=== PATIENT | female | born 1935 | race Caucasian/White ===

== ENCOUNTER 2016-10-15 19:01 | Emergency (ER) | payer OTHER ==
[~2016-10-15] VITALS: Ht 157.5 cm; Wt 68.0 kg
[~2016-10-15 19:01] MED LIST: ASPI81 PO; CAPT50TA3 PO; FISH300C2 PO; GATIFLOXACIN RIGHT EYE; KETO1SOL3 RIGHT EYE; MEVA40TA6 PO; OMNI1SUS OP; OYST500T77 PO; POTA-243 PO
[2016-10-15 19:06] VITALS: BP 225/90; PULSE 60; RESP 16; TEMP 98; O2SAT 97
--- NOTE | 2016-10-15 19:29 | PD ---
HPI Chief Complaint: Fall Time Seen by Provider: 19:24 Travel History International Travel<30 days: No Contact w/Intl Traveler<30days: No Traveled to known affect area: No History of Present Illness HPI 81-year-old female presents to the emergency room for evaluation of right elbow skin tear and right sided-rib pain after trip and fall just prior to arrival. Patient tripped on a blanket that was on the floor and fell to her right landing mostly on her elbow. She sustained a skin tear which her daughter cleaned with hydrogen peroxide. She denies hitting her head or loss of consciousness. She is not on blood thinners. Patient reports pesa-rb-orfsryht pain in her right ribs and thoracic spine worse with deep breathing. She denies shortness of breath or difficulty breathing. She was able to get up and walk immediately afterwards without significant pain. She denies upper or lower extremity paresthesias, saddle anesthesia, or loss of bowel or bladder control. Unknown last tetanus. PFSH Past Medical History Arthritis: Yes Blood Disorders: No Cancer: No Cardiovascular Problems: Yes High Cholesterol: Yes Chemotherapy: No Endocrine: No Genitourinary: No Hypertension: Yes Immune Disorder: No Musculoskeletal: Yes Neurologic: No Psychiatric: No Reproductive: No Respiratory: No Radiation Therapy: No ?: Not Past Surgical History Abdominal Surgery: No Ear Surgery: No Endocrine Surgery: No Eye Surgery: No Genitourinary Surgery: No Gynecologic Surgery: Yes Hysterectomy: Yes Oral Surgery: No Thoracic Surgery: No Social History Alcohol Use: No Tobacco Use: No Substance Use: No Allergies-Medications (Allergen,Severity, Reaction): Coded Allergies: No Known Allergies (Verified , 10/15/16) Uncoded Allergies: trasnspore tape (Allergy, Intermediate, skin burning and red , 01/19/11) Reported Meds & Prescriptions Reported Meds & Active Scripts Active Reported [place]-3 Fish Oil 300 mg ([place]-3 Fatty Acids) 1 Cap Cap 1 Mg PO BID Captopril-Hydrochlorothiazide 50-15 Mg Tab 1 Tab PO BIDAC Take 1 hr before meal(s) Lovastatin 40 Mg Tab 40 Mg PO DAILY Calcium 500 +D (Calcium Carbonate-Cholecalciferol) 500-400 Mg-Unit Tab 1 Tab PO BID Review of Systems Except as stated in HPI: all other systems reviewed are Neg Physical Exam Narrative GENERAL: Well-developed, well-nourished female in no acute distress. Afebrile. Ambulatory. SKIN: Focused skin assessment warm/dry. There is a 3 cm skin tear to the right elbow. HEAD: Atraumatic. Normocephalic. EYES: Pupils equal and round. No scleral icterus. No injection or drainage. NECK: Trachea midline. No JVD. CARDIOVASCULAR: Regular rate and rhythm. No murmur appreciated. RESPIRATORY: No accessory muscle use. Clear to auscultation. Breath sounds equal bilaterally. CHEST: Mild tenderness to palpation over the right lateral rib cage. No deformity or crepitance. No retractions or use of accessory muscles. MUSCULOSKELETAL: No obvious deformities. No clubbing. No cyanosis. No edema. Full range of motion of bilateral upper and lower extremities. 2+ radial pulse on the right. NEUROLOGICAL: Awake and alert. No obvious cranial nerve deficits. Motor grossly within normal limits. Normal speech. PSYCHIATRIC: Appropriate mood and affect; insight and judgment normal. Data Data Last Documented VS Vital Signs Date Time Temp Pulse Resp B/P Pulse Ox O2 Delivery O2 Flow Rate FiO2 10/15/16 19:36 196/86 10/15/16 19:06 98.0 60 16 97 Orders Ribs, Uni (W/Exp Cxr-Min 3vw) (10/15/16 ) Wound Care (10/15/16 19:29) MDM Medical Decision Making Medical Screen Exam Complete: Yes Emergency Medical Condition: Yes Medical Record Reviewed: Yes Differential Diagnosis Skin tear, contusion, fracture, sprain, strain Narrative Course 81-year-old female presents to the emergency room for evaluation of right elbow skin tear and right-sided rib pain that occurred just prior to arrival after she tripped and fell over a blanket on the floor. She denies hitting her head or loss of consciousness. Denies any other complaints. She has been ambulatory since falling. Patient ambulated in the emergency room without significant difficulty or pain. Lungs sounds clear and equal bilaterally. No crepitus. Vital signs stable. 97% on room air. Skin tear was cleansed and then repaired with Steri-Strips. X-ray of the rib cage shows no acute bony abnormality. Patient discharged with wound care instructions and told to take Tylenol for pain. Told to follow up with a primary care physician or return for worsening symptoms. She understands and agrees to plan. Diagnosis Primary Impression: Skin tear of right elbow without complication Qualified Code: S51.011A - Skin tear of right elbow without complication, initial encounter Additional Impression: Contusion of rib on right side Qualified Code: S20.211A - Contusion of rib on right side, initial encounter Referrals: Primary Care Physician Patient Instructions: General Instructions, Rib Contusion (ED), Skin Tear (ED) Additional Instructions: Rest and drink plenty of fluids. Keep wound clean and dry. Apply triple antibiotic ointment to open areas. Take Tylenol as directed, as needed for pain. Be sure to breathe deeply to prevent pneumonia. Follow-up with a primary care physician. Return to the emergency room for worsening symptoms. Med/Other Pt SpecificInfo: Prescription(s) given Disposition: 01 DISCHARGE HOME Condition: Stable Omaira Chamberlain Oct 15, 2016 19:29
[2016-10-15 19:36] VITALS: BP 196/86
[2016-10-15] MEDS ORDERED: OMEG1CAP32 PO (19:41)
[2016-10-15] MEDS ORDERED: LOVA40TA PO (19:41)
[2016-10-15] MEDS ORDERED: CALC1TAB12 PO (19:41)
[2016-10-15] MEDS ORDERED: CAPT50TA3 PO (19:41)
--- NOTE | 2016-10-15 20:05 | RADRPT ---
EXAM DATE/TIME: 10/15/2016 19:34 [facility] COMPARISON: No previous studies available for comparison. INDICATIONS : Trauma, fall. MEDICAL HISTORY : None. SURGICAL HISTORY : None. ENCOUNTER: Initial ACUITY: 1 day PAIN SCORE: 4/10 LOCATION: Right chest FINDINGS: Multiple views of the right ribs were performed. There is no evidence of displaced fracture. No estee tructive lesions or areas of periosteal thickening are seen. Expiratory view of the chest is negativ e for pneumothorax. The mediastinal structures are midline. CONCLUSION: No acute disease. Ric Mayen MD on October 15, 2016 at 20:02 Board Certified Radiologist. This report was verified electronically.
== END 2016-10-15 20:46 | disposition home or self-care (01) ==
LOC: PHEFT 19:01
DX: S51.011A Laceration without foreign body of right elbow, initial encounter (principal); S20.211A Contusion of right front wall of thorax, initial encounter; I10 Essential (primary) hypertension; W01.0XXA Fall on same level from slipping, tripping and stumbling without subsequent striking against object, initial encounter
CPT/HCPCS: 71101; 99283